=== PATIENT | male | born 1935 | race Caucasian/White ===

== ENCOUNTER → 2016-12-10 | Outpatient (CLI) | payer OTHER | LOC: BRMIMAGING 08:41 | PROVIDERS: ATTEND Surgery | DX: Z12.39 Encounter for other screening for malignant neoplasm of breast (principal); M85.80 Other specified disorders of bone density and structure, unspecified site ==

== ENCOUNTER 2017-12-19 09:10 | Emergency (ER) | payer OTHER ==
[2017-12-19 09:17] VITALS: BP 115/62
--- NOTE | 2017-12-19 09:28 | EDPHY ---
H & P Stated Complaint: Needs removal of a tick to left flank. Time Seen by Provider: 12/19/17 09:22 HPI/ROS: CHIEF COMPLAINT: Tick on abdominal wall HISTORY OF PRESENT ILLNESS: Patient presents the ED after he noticed a tick on his abdominal wall. The patient removed one from his right thigh earlier this week. The patient was in [place] last week hiking [place]. The patient denies any rash. He denies any arthralgias or fever. He denies any fever, cough or congestion. He denies additional acute complaints. REVIEW OF SYSTEMS: A comprehensive 10 point review of systems is otherwise negative aside from elements mentioned in the history of present illness. Source: Patient Exam Limitations: No limitations - Personal History Current Tetanus Diphtheria and Acellular Pertussis (TDAP): Yes - Medical/Surgical History Hx Asthma: No Hx Chronic Respiratory Disease: No Hx Diabetes: No Hx Cardiac Disease: No Hx Renal Disease: No Hx Cirrhosis: No Hx Alcoholism: No Hx HIV/AIDS: No Hx Splenectomy or Spleen Trauma: No Other PMH: Denies - Social History Smoking Status: Former smoker - Physical Exam Exam: General Appearance: Alert, no distress Eyes: Pupils equal and round no pallor or injection ENT, Mouth: Mucous membranes moist Respiratory: There are no retractions, lungs are clear to auscultation Cardiovascular: Regular rate and rhythm Gastrointestinal: Abdomen is soft and nontender, no masses, bowel sounds normal Neurological: A&O, normal motor function, normal sensory exam, normal cranial nerves Skin: Small tick to left lower abdominal wall. Small area of erythema less than 1 cm in size on right thigh where prior tick had been removed. No erythema migrans noted. No additional ticks noted elsewhere. Musculoskeletal: Neck is supple nontender Extremities: symmetrical, full range of motion Constitutional: Initial Vital Signs Temperature (C) 36.6 C 12/19/17 09:13 Heart Rate 74 12/19/17 09:13 Respiratory Rate 16 12/19/17 09:13 Blood Pressure 115/62 12/19/17 09:13 O2 Sat (%) 94 12/19/17 09:13 O2 Delivery Mode Room Air Allergies/Adverse Reactions: No Known Allergies Allergy (Verified 01/25/16 17:31) Home Medications: Medication Instructions Recorded Aspirin 81mg (*) 01/25/16 Herbals/Supplements -Info Only 01/25/16 Lipitor 10 mg (*) 01/25/16 Medical Decision Making ED Course/Re-evaluation: The patient presents the ED for tick removal. He does seem to meet the following criteria for single dose doxycycline prophylaxis: 1. Attached tick identified as an adult or nymphal I. scapularis tick (deer tick). 2. Tick is estimated to have been attached for 36 hours (by degree of engorgement or time of exposure). 3. Prophylaxis is begun within 72 hours of tick removal. 4. Local rate of infection of ticks with B. burgdorferi is 20 percent (these rates of infection have been shown to occur in parts of [place], parts of the [facility], [place], and parts of [place] and [place]). 5. Doxycycline is not contraindicated (ie, the patient is not <8 years of age, , or lactating). ED course: The patient was given a single 200 mg dose of doxycycline. I did remove the tick without complication on his abdominal wall. Departure - Departure Disposition: Home, Routine, Self-Care Clinical Impression: Tick bite Qualifiers: Encounter type: initial encounter Qualified Code(s): W57.XXXA - Bitten or stung by nonvenomous insect and other nonvenomous arthropods, initial encounter Condition: Good Instructions: Tick Bite (ED) Additional Instructions: 1. You have been given a single dose of doxycycline as prophylaxis for Lyme disease. 2. Please be on the lookout for the development of any increasing pain, the development of a rash with a target like appearance, high fevers or other concerns. If this occurs please return to the emergency department or follow up with your primary care provider. Referrals: [facility] [Other] - As per Instructions
[2017-12-19] MEDS: DOXYCYCLINE HYCLATE 100 MG CAP/TAB PO ONE (09:36)
== END 2017-12-19 10:19 | disposition home or self-care (01) ==
DX: S30.861A Insect bite (nonvenomous) of abdominal wall, initial encounter (principal); W57.XXXA Bitten or stung by nonvenomous insect and other nonvenomous arthropods, initial encounter

== ENCOUNTER → 2017-12-19 | Outpatient (CLI) | payer OTHER | LOC: FIMAGING 08:44 | DX: M43.16 Spondylolisthesis, lumbar region (principal); R93.7 Abnormal findings on diagnostic imaging of other parts of musculoskeletal system ==

== ENCOUNTER 2017-12-30 06:09 | Day surgery (SDC) | payer OTHER ==
[2017-12-30] MEDS ORDERED: LR 1,000 ML IV ONE (06:41)
--- NOTE | 2017-12-30 07:13 | PDHPUP ---
History & Physical Update H&P update statement: This history and physical update is based on an assessment of the patient which was completed after admission or registration (within 24 hours), but prior to the surgery/procedure. H&P update: H&P reviewed & patient examined, no change in patient's condition since H&P completed
[2017-12-30] MEDS ORDERED: ALBUTEROL 3 ML DEYVIAL IH PRN (07:14)
[2017-12-30] MEDS ORDERED: NALOXONE HCL 0.4 MG/ML INJ IVP PRN (07:14)
[2017-12-30] MEDS ORDERED: fentaNYL 100 MCG/2 ML INJ IVP PRN (07:14)
[2017-12-30] MEDS ORDERED: ONDANSETRON 4 MG/2 ML VIAL IVP PRN (07:14)
--- NOTE | 2017-12-30 07:14 | PDANEPAE ---
ANE Past Medical History - Cardiovascular History Hx Hypertension: No Hx Arrhythmias: No Hx Chest Pain: No Hx Coronary Artery / Peripheral Vascular Disease: No Hx CHF / Valvular Disease: No Hx Palpitations: No Cardiovascular History Comment: HYPERLIPIDEMIA - Pulmonary History Hx COPD: No Hx Asthma/Reactive Airway Disease: No Hx Recent Upper Respiratory Infection: No Hx Oxygen in Use at Home: No Hx Sleep Apnea: No Sleep Apnea Screening Result - Last Documented: Negative - Neurologic History Hx Cerebrovascular Accident: No Hx Seizures: No Hx Dementia: No - Endocrine History Hx Diabetes: No Endocrine History Comment: HX OF PARATHYROIDECTOMY 03/2014 - Renal History Hx Renal Disorders: No Renal History Comment: ED - Liver History Hx Hepatic Disorders: No - Neurological & Psychiatric Hx Hx Neurological and Psychiatric Disorders: No - Cancer History Hx Cancer: Yes Cancer History Comment: has had MOHS procedures - Congenital Disorder History Hx Congenital Disorders: No - GI History Hx Gastrointestinal Disorders: Yes Gastrointestinal History Comment: COLON POLYPS. esophageal dilitation due to schatzki ring. GERD - Other Health History Other Health History: none - Chronic Pain History Chronic Pain: Yes (back pain) - Surgical History Prior Surgeries: lumbar fusion L5-S1 w/3 surgeries due to complications, 2018. COLONOSCOPY & esophageal dilitation WITH DR NGO 09/06/14. REMVL PARATHYROID 2014. COLONOSCOPY REMVL POLYPS. JAS ROTATOR CUFF REPAIRS. RT ING HERNIA. T& A AT 5 YO ANE Review of Systems Review of Systems: - Exercise capacity METS (RN): 5 METS ANE Patient History - Allergies Allergies/Adverse Reactions: No Known Allergies Allergy (Verified 01/25/16 17:31) - Home Medications Home Medications: Herbals/Supplements -Info Only 01/25/16 [Last Taken 1 Week Ago ~12/23/17] Lipitor 10 mg (*) 01/25/16 [Last Taken 1 Week Ago ~12/23/17] Omeprazole 12/23/17 [Last Taken 1 Week Ago ~12/23/17] - NPO status NPO Since - Liquids (Date): 12/29/17 NPO Since - Liquids (Time): 22:00 NPO Since - Solids (Date): 12/29/17 NPO Since - Solids (Time): 15:00 - Smoking Hx Smoking Status: Former smoker - Family Anes Hx Family Hx Anesthesia Complications: NONE ANE Labs/Vital Signs - Vital Signs Blood Pressure: 112/69 Heart Rate: 64 Respiratory Rate: 18 O2 Sat (%): 94 Height: 175.26 cm Weight: 77.111 kg ANE Physical Exam - Airway Neck exam: FROM Mallampati Score: Class 2 Mouth exam: normal dental/mouth exam - Pulmonary Pulmonary: no respiratory distress - Cardiovascular Cardiovascular: regular rate and rhythym - ASA Status ASA Status: II ANE Anesthesia Plan Total IV Anesthesia: Yes
[2017-12-30] MEDS ORDERED: PROPOFOL/EMULSION 500 MG/50 ML BOTTLE IV ONE (07:15)
[2017-12-30] MEDS ORDERED: fentaNYL 100 MCG/2 ML INJ ONE (07:15)
[2017-12-30] MEDS ORDERED: LIDOCAINE 2% 100 MG/5 ML SYR ONE (07:16)
[2017-12-30] MEDS ORDERED: PROPOFOL 200 MG/20 ML VIAL ONE ×3 (07:45→08:55)
--- NOTE | 2017-12-30 09:22 | POSTANESTH ---
Post Anesthetic Evaluation Cardiovascular Status: Similar to Pre-Op Cond Respiratory Status: Similar to Pre-op Cond. Level of Consciousness/Mental Status: Mildly Sleepy, Arousable Pain Control: Adequate, Prn Tx Ordered Nausea/Vomiting Control: Adequate, Prn Tx Ordered Complications Possibly Related to Anesthesia: None Noted
--- NOTE | 2017-12-30 11:25 | GOP ---
DATE OF OPERATION: 12/30/2017 SURGEON: Kenny Caicedo MD ANESTHESIA: IV general. ANESTHESIOLOGIST: Dr. Stallworth. PREOPERATIVE DIAGNOSIS: 1. Dysphagia. 2. Dysplastic colon polyp. POSTOPERATIVE DIAGNOSIS: 1. Dysphagia. 2. Dysplastic colon polyp. PROCEDURE PERFORMED: 1. Upper endoscopy with biopsy and dilation. 2. Total colonoscopy with biopsies. FINDINGS: Extensive diverticulosis, spasmodic, tortuous colon. INDICATIONS: 82-year-old male with a history of dysphagia, status post prior dilation of a Schatzki's ring with significant symptomatic improvement 2 years ago. He also has a past history of dysplastic cecal polyp for which he is undergoing repeat surveillance colonoscopy today. DESCRIPTION OF PROCEDURE: IV sedative was initiated. The patient was placed in the left lateral decubitus position. The endoscope was easily passed via the oropharynx down to the 3rd portion of the duodenum. The duodenum appeared normal. The pylorus showed mild chronic inflammatory changes. Portions of the antrum were biopsied and sent for histologic analysis as well as GALINA testing. The scope was drawn into the body where evidence of mild gastritis changes were noted. Portions of these were biopsied as well. Scope was retroflexed showing a moderate-sized hiatal hernia. The scope was withdrawn back into the esophagus. The Z-line was noted at approximately 35 cm. The Z-line appeared regular. There was evidence of mild distal esophagitis type change. There was a slight narrowing noted at the GE junction as previously noted. A 20 mm TTS balloon was passed, inflated multiple times and held allowing for excellent expansion of the GE junction. The scope was slowly withdrawn showing normal remaining proximal and mid esophagus. The scope was withdrawn uneventfully and the patient repositioned in a left lateral decubitus position. Digital exam disclosed no intrarectal masses. The colonoscope was passed to the cecum as noted by the terminal ileal folds and appendiceal orifice. The prep was of fair quality with some residual particulate vegetable matter. The sigmoid colon was extremely tedious to maneuver. Again, there were extensive small and wide- mouth diverticular peppered throughout the entire colon, mostly concentrated in the left half. The colon also had significant spasm making traversing difficult. This was ultimately overcome using large volumes of saline instillation. At the level of the cecum where the prior dysplastic polyp was noted, were 2 small polyps; 1 on the terminal ileal fold and the other in the body of the cecum. Both of these were excised in total using a cold biopsy forceps. Multiple additional biopsies were obtained at 75 and 50 cm; 2 additional polyps were noted at 35 cm. The 1st being a long, flat, possible villous lesion versus hyperplastic tissue and the 2nd being a more discrete small polypoid mass. A probable hyperplastic polyp was noted at 15 cm in the anal verge. The scope was drawn into the rectum where on retroflexion, no significant internal hemorrhoids were present. The scope was withdrawn and the patient taken recovery awake uneventfully. /[id number]/MODL MTDD
[2017-12-30 12:18] VITALS: BP 123/82
== END 2017-12-30 12:15 | disposition home or self-care (01) ==
LOC: FSGY 06:09
PROVIDERS: ATTEND Surgery
PROC: 0DB68ZX Excision of Stomach, Via Natural or Artificial Opening Endoscopic, Diagnostic (ICD-10-PCS; principal; 2017-12-30 07:30)
PROC: 0DBH8ZZ Excision of Cecum, Via Natural or Artificial Opening Endoscopic (ICD-10-PCS; principal; 2017-12-30 07:30)
PROC: 0DBE8ZZ Excision of Large Intestine, Via Natural or Artificial Opening Endoscopic (ICD-10-PCS; principal; 2017-12-30 07:30)
PROC: 0DB58ZX Excision of Esophagus, Via Natural or Artificial Opening Endoscopic, Diagnostic (ICD-10-PCS; principal; 2017-12-30 07:30)
DX: R13.10 Dysphagia, unspecified (principal); K63.5 Polyp of colon; K44.9 Diaphragmatic hernia without obstruction or gangrene; K29.70 Gastritis, unspecified, without bleeding
CPT/HCPCS: 43239; 45380; C1726; J2001; J2704; J3010

== ENCOUNTER → 2018-03-29 | Outpatient (CLI) | payer OTHER | LOC: FIMAGING 12:24 | DX: M51.16 Intervertebral disc disorders with radiculopathy, lumbar region (principal); M46.96 Unspecified inflammatory spondylopathy, lumbar region; M48.061 Spinal stenosis, lumbar region without neurogenic claudication; I70.0 Atherosclerosis of aorta; K86.89 Other specified diseases of pancreas; Z98.890 Other specified postprocedural states ==